=== PATIENT | female | born 1995 | race African-American/Black ===

== ENCOUNTER 2017-07-11 17:46 | Emergency (ER) | payer OTHER, SELFPAY ==
[2017-07-11 17:47] VITALS: BP 138/75; PULSE 95; RESP 16; TEMP 37.1; O2SAT 97; BMI 21.2
--- NOTE | 2017-07-11 18:17 | ED.VISSUMM ---
- ER Visit Summary Date of Service: 07/11/17 Chief Complaint: Rib and back pain History of Present Illness: The patient is a 22 F presenting with bilateral rib and back pain. She states this started approximately 1 month ago. She does not recall specific injury. She states she does a lot of heavy lifting at work. She has had no fever. She denies chest pain or shortness of breath. No numbness or weakness. Denies urinary complaints. No other complaints. She has not tried any medications at home. Physical Examination: Vitals are stable. Patient is afebrile. Alert no acute distress. HEENT exam is unremarkable. Neck is supple. Lungs are clear and equal bilaterally. bilateral chest wall tenderness lateral chest Heart is regular rate and rhythm. Abdomen is soft nontender nondistended. No guarding or rebound. Back: bilateral paraspinal thoracic tenderness, no midline tenderness Extremities are unremarkable. Skin is warm and dry. No rash No focal neurologic deficit. Normal strength and sensation Remainder of exam is unremarkable. Emergency Department Course and Treatment: Bilateral rib x-ray shows no acute process. Patient is given prescription for Naprosyn. She is advised to follow-up with Dr. Young her primary care physician. Advised return to ED if worsening complaints. Disposition: Discharge home Impression: Chest wall and back pain This note was generated with [employer] dictation software. It may contain incorrect words, spelling, and punctuation that were not noted in review of the chart prior to signing ED Disposition - Plan for ED Patient: Chief Complaint: Flank Pain Referrals: Jeff Young DO [Primary Care Provider] -
--- NOTE | 2017-07-11 18:20 | RAD_ITS ---
STUDY: X-RAY - BILATERAL RIBS WITH CHEST REASON FOR EXAM: Female, 22 years old. Bilateral posterior rib and flank pain TECHNIQUE - RIBS: 2 view(s) of the ribs. TECHNIQUE - CHEST: Single frontal view of the chest. COMPARISON: None. FINDINGS - RIBS : Normal visualized ribs without a demonstrated fracture. FINDINGS - CHEST: The lungs are clear and expanded. There is no demonstrated pleural abnormality. Normal size heart. Normal mediastinum and toni. Normal visualized pulmonary arteries. Normal visualized aortic arch and descending thoracic aorta. Normal visualized thoracic spine. Normal visualized ribs, clavicles, and shoulders. There is no demonstrated abnormality of the visualized soft tissue structures of the upper abdomen. RAD/Ribs Jose Guadalupe Min 4V w/PA Chest IMPRESSION: RIBS: Normal x-ray examination of the bilateral ribs. CHEST: Normal x-ray examination of the chest. Electronically Signed: Blaise Monson DO at 19:00 EDT Tel , Service support ,
--- NOTE | 2017-07-11 18:20 | ED.DCSUM_ITS ---
- ER Visit Summary Date of Service: 07/11/17 Chief Complaint: Rib and back pain History of Present Illness: The patient is a 22 F presenting with bilateral rib and back pain. She states this started approximately 1 month ago. She does not recall specific injury. She states she does a lot of heavy lifting at work. She has had no fever. She denies chest pain or shortness of breath. No numbness or weakness. Denies urinary complaints. No other complaints. She has not tried any medications at home. Physical Examination: Vitals are stable. Patient is afebrile. Alert no acute distress. HEENT exam is unremarkable. Neck is supple. Lungs are clear and equal bilaterally. bilateral chest wall tenderness lateral chest Heart is regular rate and rhythm. Abdomen is soft nontender nondistended. No guarding or rebound. Back: bilateral paraspinal thoracic tenderness, no midline tenderness Extremities are unremarkable. Skin is warm and dry. No rash No focal neurologic deficit. Normal strength and sensation Remainder of exam is unremarkable. Emergency Department Course and Treatment: Bilateral rib x-ray shows no acute process. Patient is given prescription for Naprosyn. She is advised to follow- up with Dr. Young her primary care physician. Advised return to ED if worsening complaints. Disposition: Discharge home Impression: Chest wall and back pain This note was generated with [employer] dictation software. It may contain incorrect words, spelling, and punctuation that were not noted in review of the chart prior to signing ED Disposition - Plan for ED Patient: Chief Complaint: Flank Pain Referrals: Jeff Young DO [Primary Care Provider] -
--- NOTE | 2017-07-11 19:07 | ED.DEP ---
ED Disposition - Plan for ED Patient: Chief Complaint: Flank Pain Instructions: ED Strain Chest Wall Prescriptions: Naproxen [Naprosyn] 500 mg PO BID PRN #20 tablet Referrals: Jeff Young DO [Primary Care Provider] -
[2017-07-11 19:16] VITALS: BP 132/74; PULSE 74; RESP 16; O2SAT 98
== END 2017-07-11 19:17 | disposition home or self-care (01) ==
PROVIDERS: Emergency Provider Emergency Medicine; Family Provider Student in an Organized Health Care Education/Training Program; PCP Student in an Organized Health Care Education/Training Program
DX: R07.89 Other chest pain (principal); M54.6 Pain in thoracic spine
CPT/HCPCS: 71111; 99282

== ENCOUNTER 2017-08-31 17:31 | Emergency (ER) | payer OTHER, SELFPAY ==
[2017-08-31 17:32] VITALS: BP 129/78; PULSE 89; RESP 14; TEMP 37.2; O2SAT 98; BMI 22.1
--- NOTE | 2017-08-31 17:59 | ED.DCSUM_ITS ---
- ER Visit Summary Date of Service: 08/31/17 Chief Complaint: Back pain History of Present Illness: The patient is a 22 F who presents with right thoracic pain that has been constant for the past 2-3 days. Patient states that she was doing some lifting at the gym and has been having pain ever since. Patient states the pain is worse with lifting. Patient denies any paresthesias or weakness. Patient denies any radiation of the pain. Patient denies any chest pain or shortness of breath. Patient denies any abdominal pain. Patient denies any nausea or vomiting. Patient denies any bowel or bladder changes. Patient denies any saddle anesthesia. Physical Examination: Vital signs are stable. Patient is afebrile. Patient is in no acute distress. Musculoskeletal exam reveals tenderness over the right thoracic paraspinal muscles. There is no bony crepitance or step-off. Range of motion was limited in motion of the thoracic spine and right shoulder secondary to pain. Heart was regular rate and rhythm. Lungs are clear and equal bilateral. There is good respiratory effort noted. The remaining physical exam is within normal limits. Emergency Department Course and Treatment: Patient was given a prescription for Naprosyn. Patient was instructed to use ice to the area. Patient was given a note for work for limited lifting. Patient was instructed to follow-up with her primary care physician in 7-10 days. Patient understood and was agreeable with the plan. All questions were answered. Disposition: Discharge home Impression: Acute thoracic strain This note was generated with [employer] dictation software. It may contain incorrect words, spelling, and punctuation that were not noted in review of the chart prior to signing ED Disposition - Plan for ED Patient: Disposition: Home or Assisted Living Chief Complaint: Back Diagnosis: Thoracic myofascial strain Instructions: ED Sprain Thoracic Spine Prescriptions: Naproxen [Naprosyn] 500 mg PO BID PRN #20 tab Referrals: Jeff Young DO [Primary Care Provider] -
== END 2017-08-31 18:26 | disposition home or self-care (01) ==
LOC: ED 18:20
PROVIDERS: Emergency Provider Emergency Medicine; Family Provider Student in an Organized Health Care Education/Training Program; PCP Student in an Organized Health Care Education/Training Program
DX: S29.012A Strain of muscle and tendon of back wall of thorax, initial encounter (principal); X50.0XXA Overexertion from strenuous movement or load, initial encounter; Y93.89 Activity, other specified; Y92.838 Other recreation area as the place of occurrence of the external cause; Y99.8 Other external cause status; Z72.0 Tobacco use
CPT/HCPCS: 99282

== ENCOUNTER 2017-11-05 19:35 | Emergency (ER) | payer OTHER, SELFPAY ==
[2017-11-05 19:35] VITALS: BP 121/66; PULSE 89; RESP 16; TEMP 37.2; BMI 21.9
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
--- NOTE | 2017-11-05 19:47 | RAD_ITS ---
STUDY: X-RAY - RIGHT HAND REASON FOR EXAM: Female, 22 years old. Injury fourth and fifth metacarpals TECHNIQUE: 3 view(s) of the hand. COMPARISON: None. FINDINGS: Normal radiocarpal articulation. Normal distal radioulnar joint. Normal visualized carpal bones. Normal carpal articulations Normal carpometacarpal articulation of the thumb. Normal second through fifth carpometacarpal joints. Normal metacarpi. Normal metacarpophalangeal joint of the thumb. Normal interphalangeal joint of the thumb. Normal proximal and distal phalanges of the thumb. Normal metacarpophalangeal joints of the second through fifth fingers. Normal proximal and distal interphalangeal joints of the second through fifth fingers. Normal phalanges of the second through fifth fingers. The soft tissue structures are unremarkable. RAD/Hand Min 3 Views IMPRESSION: Normal x-ray examination of the hand. Electronically Signed: Rj Hurt MD at 20:56 EDT , Service support ,
--- NOTE | 2017-11-05 21:03 | ED.DEP ---
ED Disposition - Plan for ED Patient: Chief Complaint: Upper Extremity Injury Instructions: ED Contusion Upper Ext Referrals: Jeff Young DO [Primary Care Provider] -
== END 2017-11-05 21:15 | disposition home or self-care (01) ==
LOC: ED 20:07
PROVIDERS: Emergency Provider Emergency Medicine; Family Provider Student in an Organized Health Care Education/Training Program; PCP Student in an Organized Health Care Education/Training Program
DX: S60.221A Contusion of right hand, initial encounter (principal); W22.8XXA Striking against or struck by other objects, initial encounter; Y93.89 Activity, other specified; Y92.9 Unspecified place or not applicable; Z72.0 Tobacco use
CPT/HCPCS: 73130; 99282

== ENCOUNTER 2018-01-12 09:41 | Emergency (ER) | payer OTHER, SELFPAY ==
[2018-01-12 09:41] VITALS: BP 124/74; PULSE 58; RESP 15; TEMP 36.2; O2SAT 99; BMI 22.2
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
[2018-01-12] MEDS: 0.9% Normal Saline 1,000 ML 1000 ML IV (10:09)
[2018-01-12] MEDS: Ketorolac 30 MG/ML Syringe IV (10:09)
[2018-01-12 10:30] LABS: Hematocrit 40.6 % (37-47); Hemoglobin 13.4 g/dl (12.0-15.0); Mean Corpuscular Hgb 28.5 pg (27.0-32.0); Mean Corpuscular Volume 86.2 fL (81-99); Platelet Count 177 K/mm3 (150-450); RBC Distribution Width CV 12.7 % (11.6-14.6); Red Blood Count 4.71 M/mm3 (4.2-5.4); Scan Indicated on CBC? Y/N NO
[2018-01-12 11:01] LABS: Bacteria 0 SEEN /hpf (None Seen); Mucous, Urine 0 SEEN /hpf (<or=2+); Squamous Epithelial Cells - UA 0 SEEN /hpf (5-10)
[2018-01-12 11:03] LABS: Color, Urine Red (Yellow); Glucose, Dipstick Normal (Normal); Ketone-Dipstick Negative (Negative); Leukocyte Esterase-Dipstick 100 /ul (Negative); Nitrite-Dipstick Negative (Negative); Occult Blood-Urine 250 /ul (Negative); Protein-Dipstick 30 mg/dl (Negative); Urine Bilirubin Dipstick Negative (Negative); Urine Clarity Sl. Cloudy (Clear); Urine Urobilinogen Normal (Normal); Urine pH 6.5 (5.0 - 8.0)
[2018-01-12 11:10] LABS: Red Blood Cells-Urine > 100 SEEN /hpf (0-5); White Blood Cells 0-5 SEEN /hpf (0-5)
[2018-01-12 11:14] LABS: Pregnancy, Serum, hCG Quali. NEGATIVE Negative (0-9 Nonpreg)
[2018-01-12 11:27] VITALS: BP 108/65; PULSE 69; RESP 18; O2SAT 99
== END 2018-01-12 11:27 | disposition home or self-care (01) ==
LOC: ED 10:18
PROVIDERS: Emergency Provider Emergency Medicine; Family Provider Student in an Organized Health Care Education/Training Program; PCP Student in an Organized Health Care Education/Training Program
DX: N93.9 Abnormal uterine and vaginal bleeding, unspecified (principal); Z72.0 Tobacco use
CPT/HCPCS: 81001; 84703; 85027; 96374; 99283; J7030

== ENCOUNTER 2018-12-27 00:35 | Emergency (ER) | payer SELFPAY ==
[2018-12-27 00:36] VITALS: BP 123/85; PULSE 111; RESP 18; TEMP 37.2; O2SAT 94; BMI 22.2
--- NOTE | 2018-12-27 00:43 | RAD_ITS ---
STUDY: X-RAY - LEFT SHOULDER REASON FOR EXAM: Female, 23 years old. Status post fall. Pain. TECHNIQUE: 4 view(s) of the shoulder. COMPARISON: None. FINDINGS: Normal glenohumeral articulation. Normal acromioclavicular joint. Normal acromion. Normal humeral head and visualized proximal humerus. The soft tissue structures are unremarkable. Normal visualized pulmonary apex. RAD/Shoulder min 2 Views IMPRESSION: Normal x-ray examination of the shoulder. Electronically Signed: Regino Jean MD at 1:49 EDT , Service support ,
--- NOTE | 2018-12-27 00:45 | ED.DCSUM_ITS ---
- ER Visit Summary Date of Service: 12/27/18 Chief Complaint: Fall History of Present Illness: The patient is a 23 F presenting after fall off skateboard. This occurred just prior to arrival. Patient did not hit her head or lose consciousness. She sustained a laceration to her right forearm. She complains of left shoulder pain. She is able to ambulate. She denies other injuries. Last tetanus is unknown. Physical Examination: Vitals are stable. Patient is afebrile. Alert no acute distress. HEENT exam is unremarkable. Neck is nontender Lungs are clear and equal bilaterally. Heart is regular rate and rhythm. Abdomen is soft nontender nondistended. Extremities 2 cm right forearm laceration, neurovascularly intact distally. Active full range of motion. Left anterior shoulder tenderness with painful range of motion. Skin is warm and dry. No focal neurologic deficit. Remainder of exam is unremarkable. Emergency Department Course and Treatment: Patient was given tetanus IM. Laceration was irrigated, anesthetized with lidocaine. 4, 5-0 simple sutures were placed. Patient tolerated this well. Advised wound care instructions. Left shoulder x-ray shows normal x-ray examination of the shoulder. Advised to follow-up with primary care physician. Advised return to the ED for worsening complaints. Disposition: Discharge home Impression: Right forearm laceration, laceration repair, left shoulder contusion This note was generated with [employer] dictation software. It may contain incorrect words, spelling, and punctuation that were not noted in review of the chart prior to signing ED Disposition - Plan for ED Patient: Disposition: Home or Assisted Living Instructions: LACERATION, All Referrals: Jeff Young DO [Primary Care Provider] -
[2018-12-27] MEDS: Diphth,Pertuss(Acell),Tet Vac 0.5 ML Vial IM (01:00)
--- NOTE | 2018-12-27 01:14 | ED.DEP ---
ED Disposition - Plan for ED Patient: Instructions: LACERATION, All Referrals: Jeff Young DO [Primary Care Provider] -
[2018-12-27 02:08] VITALS: PULSE 80; RESP 15; O2SAT 99
== END 2018-12-27 02:08 | disposition home or self-care (01) ==
LOC: ED 01:00
PROVIDERS: Emergency Provider Emergency Medicine; Family Provider Student in an Organized Health Care Education/Training Program; PCP Student in an Organized Health Care Education/Training Program
DX: S51.811A Laceration without foreign body of right forearm, initial encounter (principal); S40.012A Contusion of left shoulder, initial encounter; V00.131A Fall from skateboard, initial encounter; Y93.51 Activity, roller skating (inline) and skateboarding; Y92.9 Unspecified place or not applicable; Y99.8 Other external cause status; Z72.0 Tobacco use
CPT/HCPCS: 12001; 73030; 90471; 90715; 99284

== ENCOUNTER 2019-02-09 02:23 | Emergency (ER) | payer SELFPAY ==
[2019-02-09 02:25] VITALS: BP 125/105; PULSE 96; RESP 16; TEMP 36.7; O2SAT 97; BMI 19.3
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
[2019-02-09] MEDS: Ibuprofen 600 MG Tablet PO (02:37)
[2019-02-09 02:39] VITALS: RESP 18
--- NOTE | 2019-02-09 02:41 | ED.RN ---
pt refusing x-ray of right hand. denies having any pain other than abrasion from falling on ground. full ROM to right hand.
== END 2019-02-09 02:46 | disposition home or self-care (01) ==
LOC: ED 02:44
PROVIDERS: Emergency Provider Emergency Medicine; Family Provider Student in an Organized Health Care Education/Training Program; PCP Student in an Organized Health Care Education/Training Program
DX: S09.90XA Unspecified injury of head, initial encounter (principal); S60.221A Contusion of right hand, initial encounter; X58.XXXA Exposure to other specified factors, initial encounter; Y93.9 Activity, unspecified; Y92.89 Other specified places as the place of occurrence of the external cause; Z72.0 Tobacco use
CPT/HCPCS: 99283